=== PATIENT | female | born 1950 ===

== ENCOUNTER 2021-07-04 07:00 | Inpatient (IN) | payer OTHER ==
[~2021-07-04] VITALS: Ht 157.5 cm; Wt 49.9 kg
[2021-07-04] MEDS ORDERED: HORIZANT300 MG PO (10:20)
[2021-07-04] MEDS ORDERED: MULTIPLE VITAM1 EAC2 PO (10:20)
[2021-07-04] MEDS ORDERED: ALEVE220 M1 PO (10:20)
[2021-07-10] MEDS ORDERED: DUI500 PO (12:55)
[2021-07-10] MEDS ORDERED: PERCOCET 7.5-31 EACH PO (12:55)
[2021-07-10] MEDS ORDERED: XARELTO10 MG PO (12:55)
== END 2021-07-10 18:45 | DRG 470 ==
LOC: O/R 07-08 06:22 → SURG 07-08 06:22 → SURH 07-08 07:00 → SURG 07-08 12:09
PROVIDERS: ADMIT Orthopaedic Surgery; ATTEND Orthopaedic Surgery
PROC: 0MBM0ZZ Excision of Left Hip Bursa and Ligament, Open Approach (ICD-10-PCS; 2021-07-08)
PROC: 3E0F7SF Introduction of Other Gas into Respiratory Tract, Via Natural or Artificial Opening (ICD-10-PCS; 2021-07-08)
PROC: 0SRB0J9 Replacement of Left Hip Joint with Synthetic Substitute, Cemented, Open Approach (ICD-10-PCS; principal; 2021-07-08 07:00)
DX: M16.12 Unilateral primary osteoarthritis, left hip (principal); D62 Acute posthemorrhagic anemia; M25.852 Other specified joint disorders, left hip

== ENCOUNTER 2022-05-29 07:46 | Outpatient (CLI) | payer OTHER ==
[~2022-05-29 07:46] MED LIST: ALEVE220 M1 PO; DUI500 PO; HORIZANT300 MG PO; MULTIPLE VITAM1 EAC2 PO; PERCOCET 7.5-31 EACH PO; XARELTO10 MG PO
== END 2022-05-29 07:52 | disposition home or self-care (01) ==
LOC: LAB 07:46
PROVIDERS: ATTEND Specialist
DX: I11.9 Hypertensive heart disease without heart failure (principal); E03.9 Hypothyroidism, unspecified